=== PATIENT | male | born 1970 | race Caucasian/White ===

== ENCOUNTER 2022-09-21 21:24 | Inpatient (IN) | payer OTHER ==
[2022-09-21 22:26] VITALS: BMI 33.9
[2022-09-21] MEDS ORDERED: LORazepam 2 MG/ML SDV VIAL IM ONE (23:36)
[2022-09-21] MEDS ORDERED: chlordiazePOXIDE HCL 25 MG CAPSULE PO PRN (23:37)
[2022-09-21] MEDS ORDERED: ACETAMINOPHEN 325 MG TABLET (FP) PO PRN (23:41)
[2022-09-21] MEDS ORDERED: BENZOCAINE/MENTHOL (CHLORASEPTIC ) LOZENGE MM PRN (23:41)
[2022-09-21] MEDS ORDERED: BENZONATATE 200 MG CAPSULE PO PRN (23:41)
[2022-09-21] MEDS ORDERED: guaiFENesin 600 MG TABLET.ER (FP) PO PRN (23:41)
[2022-09-21] MEDS ORDERED: POLYETHYLENE GLYCOL (HEALTHYLAX) 3350 17 GM PACKET PO PRN (23:41)
[2022-09-21] MEDS ORDERED: LOPERAMIDE HCL 2 MG CAPSULE PO PRN (23:41)
[2022-09-21] MEDS ORDERED: ONDANSETRON *ODT* 4 MG TABLET SL PRN (23:41)
[2022-09-21] MEDS ORDERED: IBUPROFEN 600 MG TABLET (FP) PO PRN (23:41)
[2022-09-21] MEDS ORDERED: IBUPROFEN 400 MG TABLET (FP) PO PRN (23:41)
[2022-09-21] MEDS ORDERED: MAGNESIUM HYDROX 2400MG/30ML ORAL SUSPENSION 30 ML CUP PO PRN (23:41)
[2022-09-21] MEDS ORDERED: BISMUTH SUBSALICYLATE 524 MG/30 ML PO PRN (23:41)
[2022-09-21] MEDS ORDERED: MAG HYDROX/AL HYDROX/SIMETH 30 ML UNIT-DOSE CUP PO PRN (23:41)
[2022-09-21] MEDS ORDERED: DICYCLOMINE HCL 10 MG CAPSULE PO PRN (23:41)
[2022-09-21] MEDS ORDERED: levETIRAcetam 500 MG TABLET (FP) PO ONE (23:42)
[2022-09-21] MEDS ORDERED: chlordiazePOXIDE HCL 25 MG CAPSULE ONE (23:42)
[2022-09-21] MEDS: levETIRAcetam 500 MG TABLET (FP) PO SCH (23:55)
[2022-09-21] MEDS: chlordiazePOXIDE HCL 25 MG CAPSULE PO SCH (23:55)
[2022-09-22] MEDS: chlordiazePOXIDE HCL 25 MG CAPSULE PO SCH ×4 (05:36→22:26)
[2022-09-22] MEDS: PRENATAL VITAMINS W/ FOLIC ACID TABLET (FP) PO SCH (10:22)
[2022-09-22] MEDS: levETIRAcetam 500 MG TABLET (FP) PO SCH ×2 (10:22→22:26)
[2022-09-22] MEDS: amLODIPine BESYLATE 10 MG TABLET (FP) PO SCH (11:18)
[2022-09-22] MEDS: DULoxetine HCL 30 MG CAPSULE.DR PO SCH (11:18)
[2022-09-22 12:15] LABS: HEMATOCRIT 43.1 % (35.4-49); HEMOGLOBIN 14.9 GM/dL (11.7-16.9); MCH 32.1 pg (25.7-33.7); MCHC 34.5 g/dl (32.0-35.9); MEAN CELL VOLUME 93.1 fl (80-96); MEAN PLT VOLUME 7.5 fl (7.5-11.1); PLATELET COUNT 313 10^3/uL (134-434); RBC 4.63 M/mm3 (4.00-5.60); WHITE BLOOD COUNT 4.5 K/mm3 (4.0-10.0)
[2022-09-22 12:27] LABS: POTASSIUM 4.1 mmol/L (3.5-5.1)
[2022-09-22 12:36] LABS: CALCIUM 9.2 mg/dL (8.5-10.1)
[2022-09-22 12:37] LABS: ALBUMIN 3.8 g/dl (3.4-5.0); BLOOD UREA NITROGEN 10.2 mg/dL (7-18)
[2022-09-22 12:40] LABS: CREATININE 0.8 mg/dL (0.55-1.3)
[2022-09-22 12:41] LABS: BILIRUBIN,TOTAL 0.6 mg/dL (0.2-1)
[2022-09-22 12:42] LABS: TOT PROT 6.9 g/dl (6.4-8.2)
[2022-09-22] MEDS: propRANOLol HCL 10 MG TABLET PO SCH ×2 (14:18→22:26)
[2022-09-22] MEDS: METHOCARBAMOL 500 MG TABLET PO PRN (20:52)
[2022-09-22] MEDS ORDERED: MELATONIN 5 MG TABLETS PO SCH (22:00)
[2022-09-22] MEDS: THIAMINE HCL 100 MG TABLET (FP) PO SCH (22:26)
[2022-09-23] MEDS: propRANOLol HCL 10 MG TABLET PO SCH ×3 (05:43→22:14)
[2022-09-23] MEDS: chlordiazePOXIDE HCL 25 MG CAPSULE PO SCH ×4 (05:43→22:14)
[2022-09-23] MEDS: levETIRAcetam 500 MG TABLET (FP) PO SCH ×2 (10:06→22:13)
[2022-09-23] MEDS: amLODIPine BESYLATE 10 MG TABLET (FP) PO SCH (10:06)
[2022-09-23] MEDS: PRENATAL VITAMINS W/ FOLIC ACID TABLET (FP) PO SCH (10:06)
[2022-09-23] MEDS: DULoxetine HCL 30 MG CAPSULE.DR PO SCH (10:06)
[2022-09-23] MEDS: METHOCARBAMOL 500 MG TABLET PO PRN (15:21)
[2022-09-23] MEDS: THIAMINE HCL 100 MG TABLET (FP) PO SCH (22:13)
[2022-09-24] MEDS ORDERED: chlordiazePOXIDE HCL 10 MG CAPSULE PO PRN
[2022-09-24] MEDS: propRANOLol HCL 10 MG TABLET PO SCH ×3 (05:29→22:16)
[2022-09-24] MEDS: chlordiazePOXIDE HCL 10 MG CAPSULE PO SCH ×4 (05:29→22:16)
[2022-09-24] MEDS: DULoxetine HCL 30 MG CAPSULE.DR PO SCH (10:28)
[2022-09-24] MEDS: PRENATAL VITAMINS W/ FOLIC ACID TABLET (FP) PO SCH (10:28)
[2022-09-24] MEDS: levETIRAcetam 500 MG TABLET (FP) PO SCH ×2 (10:29→22:16)
[2022-09-24] MEDS: amLODIPine BESYLATE 10 MG TABLET (FP) PO SCH (10:29)
[2022-09-24] MEDS: METHOCARBAMOL 500 MG TABLET PO PRN ×2 (13:06→22:17)
[2022-09-24] MEDS: THIAMINE HCL 100 MG TABLET (FP) PO SCH (22:16)
[2022-09-25] MEDS: chlordiazePOXIDE HCL 10 MG CAPSULE PO SCH ×2 (05:33→17:00)
[2022-09-25] MEDS: propRANOLol HCL 10 MG TABLET PO SCH ×3 (06:54→22:09)
[2022-09-25] MEDS: levETIRAcetam 500 MG TABLET (FP) PO SCH ×2 (10:18→22:09)
[2022-09-25] MEDS: amLODIPine BESYLATE 10 MG TABLET (FP) PO SCH (10:18)
[2022-09-25] MEDS: DULoxetine HCL 30 MG CAPSULE.DR PO SCH (10:18)
[2022-09-25] MEDS: PRENATAL VITAMINS W/ FOLIC ACID TABLET (FP) PO SCH (10:18)
[2022-09-25] MEDS: METHOCARBAMOL 500 MG TABLET PO PRN (22:08)
[2022-09-25] MEDS: THIAMINE HCL 100 MG TABLET (FP) PO SCH (22:09)
[2022-09-26] MEDS ORDERED: chlordiazePOXIDE HCL 10 MG CAPSULE PO ONE (05:00)
[2022-09-26] MEDS: propRANOLol HCL 10 MG TABLET PO SCH (05:19)
[2022-09-26 09:21] VITALS: BP 106/76; PULSE 71; RESP 17; TEMP 98
[2022-09-26] MEDS: DULoxetine HCL 30 MG CAPSULE.DR PO SCH (09:54)
[2022-09-26] MEDS: amLODIPine BESYLATE 10 MG TABLET (FP) PO SCH (09:54)
[2022-09-26] MEDS: levETIRAcetam 500 MG TABLET (FP) PO SCH (09:54)
[2022-09-26] MEDS: PRENATAL VITAMINS W/ FOLIC ACID TABLET (FP) PO SCH (09:54)
== END 2022-09-26 09:56 | disposition home or self-care (01) | DRG 775 ==
LOC: YASAS 21:24 → Y6N 23:29
PROVIDERS: ADMIT Allergy & Immunology; ATTEND Surgery
PROC: HZ2ZZZZ Detoxification Services for Substance Abuse Treatment (ICD-10-PCS; principal; 2022-09-21)
DX: F10.230 Alcohol dependence with withdrawal, uncomplicated (principal); F41.9 Anxiety disorder, unspecified; F32.9 Major depressive disorder, single episode, unspecified; F90.9 Attention-deficit hyperactivity disorder, unspecified type; E78.5 Hyperlipidemia, unspecified; I10 Essential (primary) hypertension; R73.03 Prediabetes; Z88.8 Allergy status to other drugs, medicaments and biological substances
CPT/HCPCS: 36415; 80053; 83036; 85027; 86780; 87635; 87811